=== PATIENT | female | born 1990 | race Two or more races ===

== ENCOUNTER 2020-11-21 08:05 | Outpatient (CLI) | payer OTHER | END 2020-11-21 08:27 | disposition home or self-care (01) | LOC: RAD 08:05 | PROVIDERS: ATTEND Family Medicine | DX: M25.571 Pain in right ankle and joints of right foot (principal); S93.401A Sprain of unspecified ligament of right ankle, initial encounter; M84.371A Stress fracture, right ankle, initial encounter for fracture; M79.671 Pain in right foot ==